=== PATIENT | male | born 1955 ===

== ENCOUNTER 2016-06-23 19:40 | Emergency (ER) | payer BC ==
[~2016-06-23] VITALS: Ht 175.3 cm; Wt 86.2 kg
--- NOTE | 2016-06-23 20:20 | NUR ---
PLACED IN ROOM 2B FOR ER EVAL
[2016-06-23] MEDS ORDERED: LIDOCAINE HCL 1% 20 ML VIAL IJ ONE (22:15)
[2016-06-23] MEDS ORDERED: TDAP DIPH,PERTUSS,TET VAC/PF 0.5 ML DISP.SYRIN IM ONE ×2 (22:15→23:03)
== END 2016-06-23 23:30 | disposition home or self-care (01) ==
LOC: ER 19:44
DX: S61.012A Laceration without foreign body of left thumb without damage to nail, initial encounter (principal); W25.XXXA Contact with sharp glass, initial encounter; Y93.89 Activity, other specified; Y99.8 Other external cause status; Y92.89 Other specified places as the place of occurrence of the external cause
CPT/HCPCS: 73140; 90715; A4217; A4663; J3490